=== PATIENT | male | born 1960 | race Two or more races ===

== ENCOUNTER 2017-10-05 05:03 | Emergency (ER) | payer SELFPAY ==
[~2017-10-05] VITALS: Ht 177.8 cm; Wt 90.7 kg
[2017-10-05] MEDS ORDERED: HYDROcodone-ACET 10/325MG TAB PO ONE (08:00)
[2017-10-05 08:28] VITALS: BP 130/94
[2017-10-05] MEDS ORDERED: NEOMYCIN-BACITRACIN-POLYM UNITDOSE PKG TOP OINT TOP ONE (09:30)
== END 2017-10-05 08:58 | disposition home or self-care (01) ==
LOC: ER 05:03
DX: T23.071A Burn of unspecified degree of right wrist, initial encounter (principal); F17.210 Nicotine dependence, cigarettes, uncomplicated; X11.8XXA Contact with other hot tap-water, initial encounter; Y93.89 Activity, other specified; Y99.8 Other external cause status; Y92.89 Other specified places as the place of occurrence of the external cause

== ENCOUNTER 2017-12-23 16:03 | Emergency (ER) | payer SELFPAY ==
[~2017-12-23] VITALS: Ht 177.8 cm; Wt 93.0 kg
[2017-12-23 16:18] VITALS: BP 163/106
[2017-12-23 17:00] LABS: Basophils # (auto) 0.1 uL; Basophils % (auto) 0.6 % (0.0-2.0); Eosinophils # (auto) 0.2 uL; Eosinophils % (auto) 1.3 % (0.0-7.0); Hematocrit 44.1 % (41.0-53.0); Hemoglobin 14.8 g/dL (13.5-17.5); Lymphocytes # (auto) 2.1 uL; Lymphocytes % (auto) 17.5 % (10.0-50.0); Mean Corpuscular Hemoglobin 29.9 pg (28.0-32.0); Mean Corpuscular Hgb Conc. 33.7 g/dL (32.0-36.0); Mean Corpuscular Volume 88.8 fL (80.0-100.0); Monocytes # (auto) 0.9 uL; Monocytes % (auto) 7.8 % (0.0-12.0); Neutrophils # (auto) 8.6 uL; Neutrophils % (auto) 72.8 % (37.0-80.0); Platelet Count (auto) 265 10^3/uL (140-450); Red Blood Cells 4.96 10^6/uL (4.5-5.90); Red Cell Distribution Width 14.3 % (11.8-14.3); White Blood Cell 11.8 10^3/uL (4.4-10.8)
[2017-12-23 17:14] LABS: Albumin 3.5 g/dL (3.4-5.0); Calcium 8.7 mg/dL (8.5-10.1); Potassium 4.3 mmol/L (3.5-5.1)
[2017-12-23 17:17] LABS: BUN/Creatinine Ratio 12.2; Bilirubin, Total 0.3 mg/dL (0.2-1.0); Total Protein 8.3 g/dL (6.4-8.2)
== END 2017-12-23 21:21 | disposition left against medical advice (07) ==
LOC: ER 16:07
DX: M79.605 Pain in left leg (principal); Z53.21 Procedure and treatment not carried out due to patient leaving prior to being seen by health care provider
CPT/HCPCS: 36415; 80053; 85025

== ENCOUNTER → 2019-11-16 | Emergency (ER) | payer MEDICAID, OTHER ==
[~2019-11-16] VITALS: Ht 177.8 cm; Wt 93.0 kg
[~2019-11-16] MED LIST: BACITRACIN TOP OINT 1 UD PKG TOP ONE; IBUPROFEN 800 MG TAB PO ONE; LIDOCAINE 1% (LOCAL ANESTH.) PF 5ml SDV ID ONE; LIDOCAINE 1% HCL (LOCAL ANESTH.) INJ 20ML MDV ONE; cefTRIAXone SOD 1,000 MG VL IM ONE; cloNIDine HCL 0.1 MG TAB PO ONE
[2019-11-16 22:50] VITALS: BP 178/110
== END | disposition home or self-care (01) ==
LOC: ER 18:33
DX: S81.811A Laceration without foreign body, right lower leg, initial encounter (principal); R03.0 Elevated blood-pressure reading, without diagnosis of hypertension; F17.210 Nicotine dependence, cigarettes, uncomplicated; W26.8XXA Contact with other sharp object(s), not elsewhere classified, initial encounter; Y93.89 Activity, other specified; Y92.89 Other specified places as the place of occurrence of the external cause; Y99.8 Other external cause status
CPT/HCPCS: 12034; 73590; 96372; 99284; J0696; J2001

== ENCOUNTER 2019-11-23 16:29 | Emergency (ER) | payer MEDICAID ==
[~2019-11-23] VITALS: Ht 177.8 cm; Wt 99.8 kg
[2019-11-23 16:39] VITALS: BP 189/164
== END 2019-11-23 16:41 | disposition home or self-care (01) ==
LOC: ER 16:29
DX: S81.811D Laceration without foreign body, right lower leg, subsequent encounter (principal); R03.0 Elevated blood-pressure reading, without diagnosis of hypertension; F17.210 Nicotine dependence, cigarettes, uncomplicated; X58.XXXD Exposure to other specified factors, subsequent encounter

== ENCOUNTER → 2019-12-02 | Emergency (ER) | payer MEDICAID ==
[~2019-12-02] VITALS: Ht 177.8 cm; Wt 102.1 kg
[~2019-12-02] MED LIST changes: +CLINDAMYCIN 600 MG/4 ML VL IM ONE; -IBUPROFEN 800 MG TAB PO ONE; -LIDOCAINE 1% (LOCAL ANESTH.) PF 5ml SDV ID ONE; -LIDOCAINE 1% HCL (LOCAL ANESTH.) INJ 20ML MDV ONE; -cloNIDine HCL 0.1 MG TAB PO ONE
[2019-12-02 21:28] VITALS: BP 157/97
[2019-12-02 22:42] LABS: Basophils # (auto) 0.1 10 ^3/uL (0-0.2); Basophils % (auto) 0.8 % (0.0-2.0); Eosinophils # (auto) 0.3 10 ^3/uL (0-0.8); Eosinophils % (auto) 2.6 % (0.0-7.0); Hematocrit 43.6 % (41.0-53.0); Hemoglobin 14.5 g/dL (13.5-17.5); Lymphocytes # (auto) 3.1 10 ^3/uL (0.4-5.4); Lymphocytes % (auto) 29.4 % (10.0-50.0); Mean Corpuscular Hemoglobin 28.5 pg (28.0-32.0); Mean Corpuscular Hgb Conc. 33.3 g/dL (32.0-36.0); Mean Corpuscular Volume 85.8 fL (80.0-100.0); Monocytes # (auto) 0.8 10 ^3/uL (0-1.3); Monocytes % (auto) 7.7 % (0.0-12.0); Neutrophils # (auto) 6.3 10 ^3/uL (1.6-8.6); Neutrophils % (auto) 59.5 % (37.0-80.0); Nucleated Red Blood Cells % 0.1 %; Platelet Count (auto) 238 10^3/uL (140-450); Red Blood Cells 5.09 10^6/uL (4.5-5.90); Red Cell Distribution Width 15.2 % (11.8-14.3); White Blood Cell 10.6 10^3/uL (4.4-10.8)
== END | disposition home or self-care (01) ==
LOC: ER 20:56
DX: S81.811D Laceration without foreign body, right lower leg, subsequent encounter (principal); L03.115 Cellulitis of right lower limb; F17.210 Nicotine dependence, cigarettes, uncomplicated; I10 Essential (primary) hypertension; W45.8XXD Other foreign body or object entering through skin, subsequent encounter
CPT/HCPCS: 36415; 73700; 85025; 96372

== ENCOUNTER 2021-12-31 14:45 | Inpatient (IN) | payer MEDICAID ==
[~2021-12-31] VITALS: Ht 177.8 cm; Wt 102.0 kg
[2021-12-31 15:43] LABS: Basophils # (auto) 0.1 10 ^3/uL (0-0.2); Basophils % (auto) 0.5 % (0.0-2.0); Eosinophils # (auto) 0.1 10 ^3/uL (0-0.8); Eosinophils % (auto) 0.9 % (0.0-7.0); Hematocrit 48.1 % (41.0-53.0); Lymphocytes # (auto) 2.2 10 ^3/uL (0.4-5.4); Lymphocytes % (auto) 13.2 % (10.0-50.0); Mean Corpuscular Hemoglobin 30.1 pg (28.0-32.0); Mean Corpuscular Hgb Conc. 33.2 g/dL (32.0-36.0); Mean Corpuscular Volume 90.9 fL (80.0-100.0); Monocytes # (auto) 1.2 10 ^3/uL (0-1.3); Monocytes % (auto) 6.9 % (0.0-12.0); Neutrophils # (auto) 13.2 10 ^3/uL (1.6-8.6); Neutrophils % (auto) 78.5 % (37.0-80.0); Red Cell Distribution Width 14.4 % (11.8-14.3); White Blood Cell 16.8 10^3/uL (4.4-10.8)
[2021-12-31 15:48] LABS: Albumin 3.3 g/dL (3.4-5.0); Calcium 8.4 mg/dL (8.5-10.1); Potassium 4.4 mmol/L (3.5-5.1)
[2021-12-31 15:50] LABS: BUN/Creatinine Ratio 13.4
[2021-12-31 15:53] LABS: Bilirubin, Total 0.3 mg/dL (0.2-1.0); Total Protein 7.1 g/dL (6.4-8.2)
[2021-12-31] MEDS ORDERED: ALBUTEROL SULF 2.5 MG/0.5ML(0.5%) NEB SOLN NEB ONE (16:30)
[2021-12-31] MEDS ORDERED: methylPREDNISolone SOD SUCC 125 MG/2 ML VL IM ONE (16:30)
[2021-12-31] MEDS ORDERED: FLUT1AER3 IN (18:31)
[2021-12-31] MEDS ORDERED: AZIT250T8 PO (18:31)
[2021-12-31] MEDS ORDERED: VALA1TAB PO (18:31)
[2021-12-31] MEDS ORDERED: ALBU108A5 IN (18:31)
[2021-12-31] MEDS ORDERED: PANTOPRAZOLE 40 MG/10 ML VIAL INJ IV ONE (20:45)
[2021-12-31] MEDS ORDERED: MORPHINE SULFATE INJ 2 MG/ml SYRG IV PRN (20:45)
[2021-12-31] MEDS ORDERED: ACETAMINOPHEN 325 MG TAB PO PRN (20:45)
[2021-12-31] MEDS ORDERED: ONDANSETRON HCL 4 MG/2 ML VIAL IV PRN (20:45)
[2021-12-31] MEDS ORDERED: NITROGLYCERIN 0.4 MG SL TAB SL PRN (20:45)
[2021-12-31] MEDS ORDERED: NICOTINE 21MG/24 HR TOPICAL PATCH TD ONE (21:15)
[2021-12-31] MEDS ORDERED: DEXTROSE (50%) 50ML SYRG IV PRN (21:15)
[2021-12-31] MEDS ORDERED: AZITHROMYCIN 500MG/ 250ML 250 ML IV ONE (21:15)
[2021-12-31] MEDS ORDERED: cefTRIAXone 1GM/50ML D5W 50 ML IV ONE (21:15)
[2021-12-31 21:26] LABS: Cholesterol 156 mg/dL (< 200); HDL Cholesterol 53 mg/dL (40-59); LDL Cholesterol 94 mg/dL (< 100); Triglycerides 116 mg/dL (< 150)
[2021-12-31] MEDS: ACCU-CHEK COMFORT CURVE STRIP VI SCH (22:27)
[2021-12-31] MEDS: SODIUM CHLORIDE 0.9% 1,000 ML IV SCH (22:46)
[2021-12-31] MEDS: methylPREDNISolone SOD SUCC 125 MG/2 ML VL IV SCH (22:52)
[2021-12-31] MEDS: InsuLIN REG 1unit/0.01ml Soln (100units/ml) SC SCH (22:54)
[2021-12-31 23:10] LABS: INR 1.03 (0.9-1.15)
[2021-12-31] MEDS: IPRATROPIUM BROM 0.5 MG/2.5ML INH SOL NEB SCH (23:37)
[2021-12-31] MEDS: ALBUTEROL SULF 2.5 MG/0.5ML(0.5%) NEB SOLN NEB SCH (23:38)
[2022-01-01] MEDS ORDERED: LABETALOL HCL 5 MG/ML 4ML SYRINGE IV ONE (00:45)
[2022-01-01 01:40] LABS: Urine Bacteria NONE SEEN /hpf (None Seen); Urine Blood Negative /uL (Negative); Urine Specific Gravity 1.022 (1.001-1.035); Urine WBC 1 /hpf (0 - 3)
[2022-01-01 01:52] LABS: Alcohol, Urine < 3.0 mg/dL (0-10); Amphetamine Screen, Urine POSITIVE (NEGATIVE); Barbiturate Scree,Urine NEGATIVE (NEGATIVE); Benzodiazephine Screen, Urine NEGATIVE (NEGATIVE); Cannabinoid Screen, Urine NEGATIVE (NEGATIVE); Cocaine Screen, Urine NEGATIVE (NEGATIVE); Opiate Scree,Urine NEGATIVE (NEGATIVE); Phencyclidine Screen, Urine NEGATIVE (NEGATIVE)
[2022-01-01 02:11] VITALS: BP 148/101
[2022-01-01] MEDS: SODIUM CHLORIDE 0.9% 1,000 ML IV SCH (04:29)
[2022-01-01 05:00] VITALS: BP 135/81
[2022-01-01] MEDS: ACCU-CHEK COMFORT CURVE STRIP VI SCH ×4 (06:19→23:03)
[2022-01-01] MEDS: InsuLIN REG 1unit/0.01ml Soln (100units/ml) SC SCH ×4 (06:26→23:09)
[2022-01-01 06:31] LABS: Albumin 3.3 g/dL (3.4-5.0); Calcium 8.8 mg/dL (8.5-10.1); Potassium 4.3 mmol/L (3.5-5.1)
[2022-01-01 06:33] LABS: BUN/Creatinine Ratio 11.8
[2022-01-01 06:36] LABS: Bilirubin, Total 0.4 mg/dL (0.2-1.0); Total Protein 7.2 g/dL (6.4-8.2)
[2022-01-01 06:46] LABS: Basophils # (auto) 0 10 ^3/uL (0-0.2); Basophils % (auto) 0.1 % (0.0-2.0); Eosinophils # (auto) 0 10 ^3/uL (0-0.8); Hematocrit 47.9 % (41.0-53.0); Hemoglobin 15.7 g/dL (13.5-17.5); Lymphocytes # (auto) 0.7 10 ^3/uL (0.4-5.4); Lymphocytes % (auto) 3.2 % (10.0-50.0); Mean Corpuscular Hgb Conc. 32.8 g/dL (32.0-36.0); Mean Corpuscular Volume 91.6 fL (80.0-100.0); Monocytes # (auto) 0.3 10 ^3/uL (0-1.3); Monocytes % (auto) 1.5 % (0.0-12.0); Neutrophils # (auto) 20.2 10 ^3/uL (1.6-8.6); Neutrophils % (auto) 95.2 % (37.0-80.0); Red Blood Cells 5.23 10^6/uL (4.5-5.90); Red Cell Distribution Width 14.5 % (11.8-14.3); White Blood Cell 21.2 10^3/uL (4.4-10.8)
[2022-01-01] MEDS: ALBUTEROL SULF 2.5 MG/0.5ML(0.5%) NEB SOLN NEB SCH ×3 (06:54→18:49)
[2022-01-01] MEDS: IPRATROPIUM BROM 0.5 MG/2.5ML INH SOL NEB SCH ×3 (06:54→18:49)
[2022-01-01 09:00] VITALS: BP 129/65
[2022-01-01] MEDS: cefTRIAXone 1GM/50ML D5W 50 ML IV SCH (09:08)
[2022-01-01] MEDS: methylPREDNISolone SOD SUCC 125 MG/2 ML VL IV SCH ×2 (10:22→23:11)
[2022-01-01] MEDS: NICOTINE 21MG/24 HR TOPICAL PATCH TD SCH (10:23)
[2022-01-01] MEDS: PANTOPRAZOLE 40 MG/10 ML VIAL INJ IV SCH (10:23)
[2022-01-01] MEDS: ENOXAPARIN SOD 40 MG/0.4 ML SYRINGE SC SCH (10:23)
[2022-01-01] MEDS: AZITHROMYCIN 500MG/ 250ML 250 ML IV SCH (11:06)
[2022-01-01 12:56] VITALS: BP 163/89
[2022-01-01 17:51] VITALS: BP 150/99
[2022-01-01 22:00] VITALS: BP 152/98
[2022-01-02] MEDS: ALBUTEROL SULF 2.5 MG/0.5ML(0.5%) NEB SOLN NEB SCH ×3 (00:51→14:45)
[2022-01-02] MEDS: IPRATROPIUM BROM 0.5 MG/2.5ML INH SOL NEB SCH ×3 (00:51→14:45)
[2022-01-02 05:00] VITALS: BP 143/88
[2022-01-02 06:25] LABS: Hematocrit 46.7 % (41.0-53.0); Hemoglobin 15.4 g/dL (13.5-17.5); Mean Corpuscular Hgb Conc. 33.1 g/dL (32.0-36.0); Mean Corpuscular Volume 90.6 fL (80.0-100.0); Red Blood Cells 5.15 10^6/uL (4.5-5.90); Red Cell Distribution Width 14.6 % (11.8-14.3); White Blood Cell 29.6 10^3/uL (4.4-10.8)
[2022-01-02] MEDS: ACCU-CHEK COMFORT CURVE STRIP VI SCH ×2 (06:34→11:32)
[2022-01-02] MEDS: InsuLIN REG 1unit/0.01ml Soln (100units/ml) SC SCH ×2 (06:35→11:33)
[2022-01-02 06:39] LABS: Band Neutrophils % (manual) 0; Basophils % (manual) 0 (0.0-2.0); Blast Cells 0; Eosinophils % (manual) 0 (0-7); Metamyelocytes % 0; Myelocytes % 0; Promyelocytes % 0; Reactive Lymphocytes 0
[2022-01-02 06:40] LABS: BUN/Creatinine Ratio 20.8; Calcium 8.7 mg/dL (8.5-10.1); Potassium 4.5 mmol/L (3.5-5.1)
[2022-01-02 08:00] VITALS: BP 133/96
[2022-01-02] MEDS: cefTRIAXone 1GM/50ML D5W 50 ML IV SCH (08:22)
[2022-01-02] MEDS: NICOTINE 21MG/24 HR TOPICAL PATCH TD SCH (08:23)
[2022-01-02] MEDS: ENOXAPARIN SOD 40 MG/0.4 ML SYRINGE SC SCH (08:23)
[2022-01-02] MEDS: PANTOPRAZOLE 40 MG/10 ML VIAL INJ IV SCH (08:23)
[2022-01-02] MEDS: methylPREDNISolone SOD SUCC 125 MG/2 ML VL IV SCH (08:24)
[2022-01-02] MEDS: AZITHROMYCIN 500MG/ 250ML 250 ML IV SCH (09:37)
[2022-01-02 10:15] LABS: Lymphocytes % (manual) 8 (10.0-50.0); Monocytes % (manual) 5 (0-12)
[2022-01-02] MEDS ORDERED: LEVO500T31 PO (12:18)
[2022-01-02] MEDS ORDERED: hydrALAZINE HCL 20 MG/ML VL IV ONE (13:15)
[2022-01-02 13:48] VITALS: BP 184/108
[2022-01-02] MEDS ORDERED: methylPREDNISolone SOD SUCC 40 MG/ML VL IV SCH (22:00)
== END 2022-01-02 14:29 | disposition home or self-care (01) | DRG 203 ==
LOC: ER 14:45 → TELE 20:42 → TELE-EAST 23:44
PROVIDERS: ADMIT Nurse Practitioner Family; ATTEND Nurse Practitioner Acute Care
DX: R07.9 Chest pain, unspecified (principal); E46 Unspecified protein-calorie malnutrition; I11.0 Hypertensive heart disease with heart failure; I50.9 Heart failure, unspecified; J44.1 Chronic obstructive pulmonary disease with (acute) exacerbation; E11.65 Type 2 diabetes mellitus with hyperglycemia; D72.829 Elevated white blood cell count, unspecified; B02.9 Zoster without complications; E66.9 Obesity, unspecified; F15.10 Other stimulant abuse, uncomplicated; F17.210 Nicotine dependence, cigarettes, uncomplicated; M54.9 Dorsalgia, unspecified; Z20.822 Contact with and (suspected) exposure to COVID-19; Z68.32 Body mass index [BMI] 32.0-32.9, adult
CPT/HCPCS: 36415; 71045; 80048; 80053; 80061; 80307; 81001; 82962; 83036; 83880; 84443; 84484; 85007; 85025; 85027; 85379; 85610; 87040; 87426; 93005; 93306; 94640; 96365; 96367; 96372; 96375; C9113; G0378; J0696; J1815; J3490

== ENCOUNTER 2022-04-04 09:02 | Emergency (ER) | payer MEDICAID ==
[~2022-04-04] VITALS: Ht 177.8 cm; Wt 100.0 kg
[~2022-04-04 09:02] MED LIST changes: +ALBU108A5 IN; +AZIT250T8 PO; -BACITRACIN TOP OINT 1 UD PKG TOP ONE; -CLINDAMYCIN 600 MG/4 ML VL IM ONE; +FLUT1AER3 IN; +LEVO500T31 PO; +VALA1TAB PO; -cefTRIAXone SOD 1,000 MG VL IM ONE
[2022-04-04] MEDS ORDERED: LIDOCAINE 1% HCL (LOCAL ANESTH.) INJ 20ML MDV ONE (10:20)
[2022-04-04 10:24] VITALS: BP 197/105
[2022-04-04] MEDS ORDERED: IBUP800T27 PO (10:52)
[2022-04-04] MEDS ORDERED: AMOX-277 PO (10:52)
== END 2022-04-04 11:03 | disposition home or self-care (01) ==
LOC: ER 09:02
DX: S61.217A Laceration without foreign body of left little finger without damage to nail, initial encounter (principal); S01.81XA Laceration without foreign body of other part of head, initial encounter; I11.0 Hypertensive heart disease with heart failure; J44.9 Chronic obstructive pulmonary disease, unspecified; Z88.1 Allergy status to other antibiotic agents; W54.0XXA Bitten by dog, initial encounter; Y93.89 Activity, other specified; Y92.89 Other specified places as the place of occurrence of the external cause; Y99.8 Other external cause status
CPT/HCPCS: 12002; 12013; 73130; 99283; J2001

== ENCOUNTER 2024-03-03 22:42 | Emergency (ER) | payer MEDICAID ==
[~2024-03-03] VITALS: Ht 177.8 cm; Wt 95.7 kg
[~2024-03-03 22:42] MED LIST changes: +AMOX875T4 PO; +AZIT-185 PO; -AZIT250T8 PO; +IBUP-1456 PO
[2024-03-03] MEDS ORDERED: CEPH250C PO (23:08)
[2024-03-03] MEDS ORDERED: DOXY-286 PO (23:08)
--- NOTE | 2024-03-03 23:08 | ED.PDOC ---
Musculoskeletal HPI Comments 63-year-old male who came to ER for wound check. Patient states he has been having bilateral, nonhealing weeping wounds both his lower extremities for the past year. Denies any fever acute chest pains or shortness of breath. Patient does have history of congestive heart failure, COPD and methamphetamine abuse Chief Complaint: Lower extremity Time Seen by MD: 23:08 Primary Care Provider: DONNA Adler Notes: Nurses Notes Allergies: Coded Allergies: NO KNOWN ALLERGIES (Unverified , 10/05/17) Home Meds Active Scripts Vitamin A (Skineez Jong Anti-Embolism) 0.01 % Mis, % XX DAILY, #1 3 Refills Prov:MYRNA RUSSELL MD 03/03/24 Doxycycline Hyclate (DOXYCYCLINE HYCLATE) 100 Mg Tab, 1 TAB PO BID for 7 Days, #14 TAB Prov:MYRNA RUSSELL MD 03/03/24 Cephalexin (KEFLEX CAPSULE) 250 Mg Cp, 250 MG PO QID for 10 Days, #40 TAB Prov:MYRNA RUSSELL MD 03/03/24 Ibuprofen (Ibuprofen) 800 Mg Tab, 1 TAB PO TID, #30 TAB Prov:SHAJI ALVARENGA 04/04/22 Amoxicillin & Pot Clavulanate (Amoxicillin/Potassium Cla) 875 Mg Tab, 1 TAB PO BID, #20 TAB Prov:SHAJI ALVARENGA 04/04/22 Levofloxacin (Levaquin) 500 Mg Tab, 500 MG PO DAILY for 5 Days, #5 TAB Prov:MATT BULL [employer]IVER 01/02/22 Albuterol Sulfate (Albuterol Sulfate Hfa) 108 Mcg/Act Aer, 108 MCG IN TID PRN, #1 AER Prov:DEVON FOXP 12/31/21 Azithromycin (ZITHROMAX TABLET) 250 Mg Tb, 250 MG PO DAILY for 5 Days, #6 TAB Prov:DEVON FOX [employer] 12/31/21 Tuhtjlduzdy-Nzrjhjntdyes-Ghhzf (Trelegy Ellipta 100-62.5-25 Mcg/INH) 1 Aer Aer, 1 AER IN DAILY for 28 Days, #1 AER Prov:DEVON FOX [employer] DIRECT[employer] 12/31/21 Valacyclovir Hcl (Valtrex) 1 Gm Tab, 1 TAB PO TID for 10 Days, #30 TAB Prov:DEVON FOXP 12/31/21 Information Source: Patient Location: Bilateral Extremity Location: Leg Timing: Months Prehospital treatment: None Severity: Moderate Able to Move Extremity: Yes Bear Weight: Limited Pain: Moderate Hand Dominance: Right Mechanism: Spontaneous Circumstances: Spontaneous Onset of Symptoms: Spontaneous Symptoms: Swelling, Pain Associated signs and symptoms: Leg pain (Bilateral) Past Medical History PAST MEDICAL HISTORY: CHF, COPD, DM, HTN Surgical History: Denies all surgeries Family History Family History: Reviewed,noncontributory to illness Social History Smoker: Cigarettes, Greater Than 1 Pack/Day Alcohol: Denies ETOH Use Drugs: Marijuana, Methamphetamine Lives In: Home Constitutional: denies: chills, diaphoresis, fatigue, fever, malaise, sweats, weakness, others EENTM: denies: blurred vision, double vision, ear bleeding, ear discharge, ear drainage, ear pain, ear ringing, eye pain, eye redness, hearing loss, mouth pain, mouth swelling, nasal discharge, nose bleeding, nose congestion, nose pain, photophobia, tearing, throat pain, throat swelling, voice changes, others Respiratory: denies: cough, hemoptysis, orthopnea, SOB at rest, shortness of breath, SOB with excertion, stridor, wheezing, others Cardiovascular: denies: chest pain, dizzy spells, diaphoresis, Dyspnea on ex ertion, edema, irregular heart beat, left arm pain, lightheadedness, palpitations, PND, syncope, others Gastrointestinal: denies: abdomen distended, abdominal pain, blood streaked bowels, constipated, diarrhea, dysphagia, difficulty swallowing, hematemesis, melena, nausea, poor appetite, poor fluid intake, rectal bleeding, rectal pain, vomiting, others Genitourinary: denies: burning, dysuria, flank pain, frequency, hematuria, incontinence, penile discharge, penile sore, pain, testicle pain, testicle swelling, urgency, others Neurological: denies: dizziness, fainting, headache, left sided numbness, left sided weakness, numbness, paresthesia, pre-existing deficit, right sided numbness, right sided weakness, seizure, speech problems, tingling, tremors, weakness, others Musculoskeletal: denies: back pain, gout, joint pain, joint swelling, muscle pain, muscle stiffness, neck pain, others Integumetry: reports: wounds (Bilateral legs); denies: bruises, change in color, change in hair/nails, dryness, laceration, lesions, lumps, rash, others Allergic/Immunocompromised: denies: Difficulty Healing, Frequent Infections, H thuy, Itching, others Hematologic/Lymphatic: denies: anemia, blood clots, easy bleeding, easy bruising, swollen glands, others Endocrine: denies: excessive hunger, excessive sweating, excessive thirst, excessive urination, flushing, intolerance to cold, intolerance to heat, unexplained weight gain, unexplained weight loss, others Psychiatric: denies: anxiety, bipolar disorder, depression, hopeless, panic disorder, schizophrenia, sleepless, suicidal, others Physical Exam General Appearance: No Apparent Distress, Normal HEENT: Normal ENT Inspection, Pharynx Normal, TMs Normal Neck: Full Range of Motion, Non-Tender, Normal, Normal Inspection Respiratory: Chest Non-Tender, Lungs Clear, No Accessory Muscle Use, No Respiratory Distress, Normal Breath Sounds Cardiovascular: No Edema, No JVD, No Murmur, No Gallop, Normal Peripheral Pulses, Regular Rate/Rhythm Breast Exam: Deferred Gastrointestinal: No Organomegaly, Non Tender, No Pulsatile Mass, Normal Bowel Sounds, Soft Genitalia: Deferred Pelvic: Deferred Rectal: Deferred Extremities: No calf tenderness, Normal capillary refill, Normal inspection, Normal range of motion, Non-tender, No pedal edema Musculoskeletal : Apperance: Normal Neurologic: Alert, manager product marketing II-XII nml as Tested, No Motor Deficits, Normal Affect, Normal Mood, No Sensory Deficits Cerebellar Function: Normal Reflexes: Normal Skin: Dry, Normal Color, Warm Lymphatic: No Adenopathy Was a procedure done? Was a procedure done?: No Differential Diagnosis EXT Differential Diagnosis: Cellulitis, CHF, Deep Vein Thrombosis X-Ray, Labs, Meds, VS Vital Signs Date Time Temp Pulse Resp B/P (MAP) Pulse Ox O2 Delivery O2 Flow Rate FiO2 03/04/24 00:43 97.0 98 20 151/97 (115) 95 97.0 03/04/24 00:43 98 20 95 Room Air 03/03/24 23:02 99.0 98 20 151/97 (115) 95 Current Medications Medications (Trade) Dose Ordered Sig/Evans Route Start Time Stop Time Status Last Admin Cephalexin (Keflex Capsule) 500 mg ONCE ONCE PO 03/03/24 23:15 03/03/24 23:16 DC 03/04/24 00:42 Time of 1ST Reevaluation: 23:05 Reevaluation 1ST: Unchanged Time of 2ND Reevaluation: 00:15 Reevaluation 2ND: Improved Patient Education/Counseling: Diagnosis, Treatment Family Education/Counseling: No Family Present Departure 1 Departure Time of Disposition: 00:15 Impression: Primary Impression: Venous stasis dermatitis of both lower extremities Additional Impressions: Cellulitis of right leg Cellulitis of left leg Disposition: 01 HOME / SELF CARE / HOMELESS Condition: Stable e-Prescriptions Vitamin A (Skineez Jong Anti-Embolism) 0.01 % Mis % XX DAILY, #1 3 Refills Prov: MYRNA RUSSELL MD 03/03/24 Doxycycline Hyclate (DOXYCYCLINE HYCLATE) 100 Mg Tab 1 TAB PO BID for 7 Days, #14 TAB Prov: MYRNA RUSSELL MD 03/03/24 Cephalexin (KEFLEX CAPSULE) 250 Mg Cp 250 MG PO QID for 10 Days, #40 TAB Prov: MYRNA RUSSELL MD 03/03/24 Discharged With: Self Critical Care Note Critical Care Time?: No Stability Stability form required: No Heart Score Heart Score: Heart Score Response (Comments) Value History N/A 0 EKG N/A 0 Age N/A 0 Risk Factors N/A 0 Troponin N/A 0 Total 0 I personally scribed for MYRNA RUSSELL MD ([email or web address]) on 03/03/24 at 23:08. Electronically submitted by Marcelino Bettencourt ([email or web address]). MYRNA RUSSELL MD Mar 03, 2024 23:08
[2024-03-03] MEDS ORDERED: [UNRECOGNIZED DRUG - CODE] XX (23:09)
[2024-03-04] MEDS: CEPHALEXIN 250 MG CAP PO ONE (00:42)
[2024-03-04 00:43] VITALS: BP 151/97; PULSE 98; RESP 20; TEMP 97; O2SAT 95
== END 2024-03-04 00:47 | disposition home or self-care (01) ==
LOC: ER 22:42
DX: I87.2 Venous insufficiency (chronic) (peripheral) (principal); L03.115 Cellulitis of right lower limb; L03.116 Cellulitis of left lower limb; I11.0 Hypertensive heart disease with heart failure; I50.9 Heart failure, unspecified; E11.9 Type 2 diabetes mellitus without complications; J44.9 Chronic obstructive pulmonary disease, unspecified; F17.210 Nicotine dependence, cigarettes, uncomplicated; F15.90 Other stimulant use, unspecified, uncomplicated; Z79.1 Long term (current) use of non-steroidal anti-inflammatories (NSAID); Z79.624 Long term (current) use of inhibitors of nucleotide synthesis; Z79.899 Other long term (current) drug therapy

== ENCOUNTER 2024-05-22 18:11 | Emergency (ER) | payer MEDICAID ==
[~2024-05-22] VITALS: Ht 177.8 cm; Wt 95.1 kg
[~2024-05-22 18:11] MED LIST changes: +CEPH250C PO; +DOXY-286 PO; +[UNRECOGNIZED DRUG - CODE] XX
[2024-05-22 18:28] VITALS: BP 195/112; PULSE 97; RESP 16; TEMP 97.8; O2SAT 95
== END 2024-05-22 19:16 | disposition left against medical advice (07) ==
LOC: ER 18:11
DX: S81.811A Laceration without foreign body, right lower leg, initial encounter (principal); Z53.21 Procedure and treatment not carried out due to patient leaving prior to being seen by health care provider; W45.8XXA Other foreign body or object entering through skin, initial encounter; Y93.89 Activity, other specified; Y92.89 Other specified places as the place of occurrence of the external cause; Y99.8 Other external cause status